=== PATIENT | female | born 1950 | race Caucasian/White ===

== ENCOUNTER 2025-04-11 12:03 | Outpatient (CLI) | payer OTHER, MEDICAID ==
[2025-04-11 12:32] LABS: Estimated GFR - POC 90.0
[2025-04-11] MEDS ORDERED: Iopamidol 370 76% 100 ML VIAL ONE (15:28)
== END 2025-04-11 12:04 | disposition home or self-care (01) ==
LOC: CT 12:03
PROVIDERS: ATTEND Family Medicine
DX: N28.89 Other specified disorders of kidney and ureter (principal); N28.1 Cyst of kidney, acquired; R93.421 Abnormal radiologic findings on diagnostic imaging of right kidney
CPT/HCPCS: 36415; 74170; 82565; Q9967